=== PATIENT | male | born 1945 | race Caucasian/White ===

== ENCOUNTER → 2019-02-24 | Outpatient (CLI) | payer MEDICARE ==
[2019-02-24 19:08] LABS: African American GFR (CKD) 85.6 (60.0-200.0); Albumin 4.3 g/dL (3.80-4.90); Albumin/Globulin Ratio 2.05 (1.60-3.17); Anion Gap 9.3 mmol/L (4.00-12.00); Calcium 9.4 mg/dL (8.7-10.3); Carbon Dioxide 25.7 mmol/L (21.6-31.8); Chol/HDL Ratio 3.17; Globulin 2.1 g/dL (1.6-3.3); LDL Cholesterol,Calculated 54.6 mg/dL (0.0-131.0); Non-African American GFR(CKD) 73.8 (60.0-200.0); Potassium 5.1 mmol/L (3.5-5.5); Total Bilirubin 0.7 mg/dL (0.3-1.2); Total Protein 6.4 g/dL (6.2-8.2); VLDL Calculation 23.4 mg/dL (5.00-40.00)
== END | disposition home or self-care (01) ==
LOC: LABWHC1 08:31
PROVIDERS: ATTEND Nurse Practitioner Adult Health
DX: I10 Essential (primary) hypertension (principal); I25.10 Atherosclerotic heart disease of native coronary artery without angina pectoris; E78.2 Mixed hyperlipidemia
CPT/HCPCS: 36415; 80053; 80061

== ENCOUNTER → 2019-08-10 | Outpatient (CLI) | payer MEDICARE ==
[2019-08-10 17:56] LABS: African American GFR (CKD) 96.5 (60.0-200.0); Anion Gap 7.9 mmol/L (4.00-12.00); BUN/Creat Ratio 21.11 Ratio (12.00-20.00); Calcium 9.3 mg/dL (8.7-10.3); Carbon Dioxide 25.1 mmol/L (21.6-31.8); Chol/HDL Ratio 3.17; LDL Cholesterol,Calculated 55.8 mg/dL (0.0-131.0); Non-African American GFR(CKD) 83.3 (60.0-200.0); Potassium 4.8 mmol/L (3.5-5.5); VLDL Calculation 22.2 mg/dL (5.00-40.00)
== END | disposition home or self-care (01) ==
LOC: LABWHC1 10:14
PROVIDERS: ATTEND Nurse Practitioner Adult Health
DX: I10 Essential (primary) hypertension (principal)
CPT/HCPCS: 36415; 80048; 80061; 84450; 84460

== ENCOUNTER → 2020-02-10 | Outpatient (CLI) | payer MEDICARE ==
[2020-02-10 10:21] LABS: Basophils % (A) 1 %; Eosinophils # (A) 0.3 k/uL (0-0.7); Eosinophils % (A) 4 %; HCT 44.2 % (39.0-53.0); Lymphocytes % (A) 28 %; MCH 28.5 pg (25.0-35.0); MCHC 31.7 g/dL (31.0-37.0); MCV 89.6 fL (80.0-100.0); Mean Platelet Volume 7.5; Monocytes # (A) 0.5 k/uL (0-1.0); Monocytes % (A) 7 %; Neutrophils # (A) 4.2 k/uL (1.3-7.7); Neutrophils % (A) 58 %; Platelet Count 203 k/uL (150-450); RBC 4.93 m/uL (4.30-5.90); RDW 13.9 % (11.5-15.5); WBC 7.3 k/uL (3.8-10.6)
[2020-02-10 20:47] LABS: African American GFR (CKD) 96.5 (60.0-200.0); Albumin 4.4 g/dL (3.80-4.90); Albumin/Globulin Ratio 1.91 (1.60-3.17); Calcium 9.2 mg/dL (8.7-10.3); Chol/HDL Ratio 3.23; Globulin 2.3 g/dL (1.6-3.3); LDL Cholesterol,Calculated 50.6 mg/dL (0.0-131.0); Non-African American GFR(CKD) 83.3 (60.0-200.0); Potassium 4.8 mmol/L (3.5-5.5); Total Bilirubin 0.8 mg/dL (0.2-1.2); Total Protein 6.7 g/dL (6.2-8.2); VLDL Calculation 27.4 mg/dL (5.00-40.00)
== END | disposition home or self-care (01) ==
LOC: LABWHC1 08:45
PROVIDERS: ATTEND Internal Medicine Interventional Cardiology
DX: E78.5 Hyperlipidemia, unspecified (principal)
CPT/HCPCS: 36415; 80053; 80061; 82550; 85025

== ENCOUNTER → 2020-07-12 | Outpatient (CLI) | payer MEDICARE ==
[2020-07-12 17:03] LABS: African American GFR (CKD) >90 (>60 ml/min/1.73 sqM); Anion Gap 5 mmol/L; Blood Urea Nitrogen 17 mg/dL (9-20); Carbon Dioxide 28 mmol/L (22-30); Chloride 108 mmol/L (98-107); Non-African American GFR(CKD) 88 (>60 ml/min/1.73 sqM); Potassium 4.4 mmol/L (3.5-5.1); Sodium 141 mmol/L (137-145)
[2020-07-12 17:16] LABS: HCT 43.7 % (39.0-53.0); HGB 13.9 gm/dL (13.0-17.5); MCH 28.4 pg (25.0-35.0); MCHC 31.8 g/dL (31.0-37.0); MCV 89.2 fL (80.0-100.0); Mean Platelet Volume 7.3; Platelet Count 216 k/uL (150-450); RDW 13.5 % (11.5-15.5); WBC 7.4 k/uL (3.8-10.6)
== END | disposition home or self-care (01) ==
LOC: LABPAT 16:10
PROVIDERS: ATTEND Internal Medicine Clinical Cardiac Electrophysiology
DX: Z01.818 Encounter for other preprocedural examination (principal); I48.21 Permanent atrial fibrillation
CPT/HCPCS: 80051; 82565; 84520; 85027

== ENCOUNTER 2020-07-19 10:30 | Day surgery (SDC) | payer MEDICARE ==
[2020-07-15 15:45] VITALS: BMI 30.2
[~2020-07-19 10:30] MED LIST: LACTATED RINGERS 1,000 ML IV SCH; SODIUM CHLORIDE 0.9% 1,000 ML IV SCH
[2020-07-19 11:10] VITALS: TEMP 97.6
[2020-07-19 11:10] LABS: Glucose,Whole Blood 114 mg/dL (75-99)
[2020-07-19] MEDS ORDERED: ceFAZolin 1,000 MG in SODIUM CHLORIDE 0.9% IRRIGATIO 250 ML IRRIGATION ONE (11:30)
[2020-07-19] MEDS ORDERED: PROPOFOL 10 MG/ML 20 ML VIAL IV ONE (12:45)
[2020-07-19] MEDS ORDERED: fentaNYL (PF) 50 MCG/ML 2 ML AMP ONE (12:45)
[2020-07-19] MEDS ORDERED: diphenhydrAMINE 50 MG/ML 1 ML VIAL ONE (12:45)
[2020-07-19] MEDS ORDERED: MIDAZOLAM 2 MG/2 ML VIAL ONE (12:45)
[2020-07-19] MEDS ORDERED: IOPAMIDOL-250 50ML BTL IV ONE (13:00)
[2020-07-19] MEDS ORDERED: LIDOCAINE 1% INJ 10MG/ML (20 ML MDV) ONE (13:11)
[2020-07-19] MEDS ORDERED: LIDOCAINE 1% INJ 10MG/ML (20 ML MDV) SQ ONE ×2 (13:30→13:45)
--- NOTE | 2020-07-19 14:39 | P.PCN ---
Preoperative Diagnosis: Left upper extremity venogram 15 mL IV dye injected in left arm. The left axillary and subclavian and innominate veins of well opacified Veins were patent with Plan Proceed with permanent pacemaker implantation, with physiologic septal pacing to avoid RV pacing Condition: stable
--- NOTE | 2020-07-19 14:42 | P.PRLE ---
RE: Castillo Roach Dear Joshua Chong underwent permanent pacemaker implantation for atrial fibrillation with bradycardia. I implanted a HIS bundle pacemaker successfully to avoid RV pacing Patients with AV node disease or severe bradycardia, in whom the anticipated right ventricular pacing percentage will be high with standard dual-chamber pacing are at a disadvantage since RV pacing over years promotes LV systolic dysfunction and heart failure as well as increased episodes of atrial fibrillation. Biventricular pacing either using an LV lead in the coronary epicardial veins or His bundle pacing promotes a synchronized LV contraction and preserves LV systolic function with reduction in heart failure. One advantage of His bundle pacing is that it promotes conduction down both the normal bundles, simulating intrinsic conduction and preserving LV systolic function This is especially so in patients who already have LV dysfunction He will continue to see you and Dr. Naik as before My thank you
[2020-07-19] MEDS ORDERED: ACETAMINOPHEN TAB 325 MG TAB PO PRN (14:44)
[2020-07-19 15:19] VITALS: RESP 16
[2020-07-19 15:24] VITALS: BP 120/71; PULSE 68
--- NOTE | 2020-07-19 15:40 | CE ---
CARDIAC ELECTROPHYSIOLOGY REPORT Mr. Roach is a 75-year-old male patient of Dr. Naik and Dr. Lira who has atrial fibrillation, tachy-dionna syndrome and underlying bradycardia, symptomatic. He was referred for a permanent pacemaker implantation. In view of his atrial fibrillation with significant bradycardia, a standard single-chamber pacemaker would result in the high RV pacing percentage. Therefore, a biventricular pacemaker was recommended with physiologic septal pacing. The patient was brought to the EP lab in a fasting state. Written informed consent was obtained prior to the procedure. The left shoulder area was prepped and draped as per protocol and 1% lidocaine was used for local anesthesia. A 4 cm incision was made parallel to the deltopectoral groove, about 1.5 cm medial to it. The incision was carried down to the level of the pectoralis muscle. A subfascial pocket was made hemostasis was assured. The axillary vein was accessed at 2 separate points under fluoroscopy and via appropriately-sized introducer sheaths 2 leads were positioned. The RV lead was screwed in the RV apex. This was a Medtronic model number 5076, 58 cm in length and serial number [id number]. Pacing threshold 0.5 V at 0.5 milliseconds, pacing impedance of 1000 ohms. R-waves 9 mV. Ten volt test was negative. The Medtronic model #3830, 69 cm length and serial number [id number] was implanted in the His bundle area. His bundle signal was noted and a nonselective capture was noted. Loss of nonselective capture was noted at 1.25 V at 1 milliseconds, pacing impedance of 437 ohms. Sensing 5 mV. The sheaths were removed. Both leads were secured to the underlying pectoralis muscle and a biventricular pacemaker was implanted. This was a Medtronic Izabela FELLER MACHINE OPERATOR P, model number W1TR02, serial number [id number]. The lead and generator were then placed in subfascial pocket. The wound was closed in 3 layers and dressed per protocol. The generator was secured to the underlying pectoralis muscle. The wound was closed in 3 layers and dressed per protocol. RESULT: Successful biventricular pacemaker with physiologic septal pacing. To promote preferential His bundle pacing and avoid RV pacing. The patient tolerated the procedure well without any acute complications. MMODL / IJN: [id number] /
--- NOTE | 2020-07-19 16:09 | XR ---
EXAMINATION TYPE: XR chest 1V portable DATE OF EXAM: 07/19/2020 HISTORY: Shortness of breath. COMPARISON: None TECHNIQUE: Single view of the chest is submitted. FINDINGS: Demonstrated are scattered senescent parenchymal change. Pacer device noted with distal leads within the right atrium and right ventricles respectively. No evidence for pneumothorax. There is no evidence for focal infiltrate. The heart is stable. Hilar and mediastinal structures are within normal limits. Degenerative changes are seen of the dorsal spine. IMPRESSION: 1. Chronic changes without evidence for acute pulmonary disease.
[2020-07-19] MEDS ORDERED: ACETAMINOPHEN IV (For NPO) 1,000 MG in EMPTY BAG 1 BAG IVPB ONE (17:00)
== END 2020-07-19 18:45 | disposition home or self-care (01) ==
LOC: CATHEP 10:30
PROVIDERS: ATTEND Internal Medicine Clinical Cardiac Electrophysiology
DX: I49.5 Sick sinus syndrome (principal); I48.11 Longstanding persistent atrial fibrillation; I25.10 Atherosclerotic heart disease of native coronary artery without angina pectoris; I10 Essential (primary) hypertension; I73.9 Peripheral vascular disease, unspecified; J45.909 Unspecified asthma, uncomplicated; E11.9 Type 2 diabetes mellitus without complications; E78.2 Mixed hyperlipidemia; M19.90 Unspecified osteoarthritis, unspecified site; K21.9 Gastro-esophageal reflux disease without esophagitis; Z95.1 Presence of aortocoronary bypass graft; Z98.890 Other specified postprocedural states; Z79.01 Long term (current) use of anticoagulants; Z79.84 Long term (current) use of oral hypoglycemic drugs; Z79.899 Other long term (current) drug therapy; Z87.891 Personal history of nicotine dependence; Z90.89 Acquired absence of other organs; Z82.49 Family history of ischemic heart disease and other diseases of the circulatory system
CPT/HCPCS: 33207; 71045; C1769 ×4; C1892; C1887; C1898; C2621; J2250; J1200; J0690 ×2; J2001; J3010; J0131; J2704; Q9966

== ENCOUNTER → 2020-10-19 | Outpatient (CLI) | payer MEDICARE ==
--- NOTE | 2020-10-19 15:34 | US ---
EXAMINATION TYPE: US abdomen complete DATE OF EXAM: 10/19/2020 COMPARISON: NONE CLINICAL HISTORY: K42.9 Umbilical hernia without obstruction. EXAM MEASUREMENTS: Liver Length: 13.2 cm Gallbladder Wall: 0.3 cm CBD: 0.5 cm Spleen: 12.1 cm Right Kidney: 11.1 x 5.5 x 5.1 cm Left Kidney: 11.6 x 6.0 x 5.1 cm Pancreas: not well visualized due to midline bowel gas Liver: wnl Gallbladder: No stones seen Evidence for sonographic George's sign: No CBD: wnl Spleen: wnl Right Kidney: No hydronephrosis or masses seen Left Kidney: No hydronephrosis or masses seen Upper IVC: wnl Abd Aorta: visualized portions wnl, partially obscured by bowel gas. Scanning was performed around umbilicus with and without valsalva. No obvious hernia noted by ultra sound. IMPRESSION: 1. No obvious hernia in periumbilical region. 2. Normal abdomen ultrasound
== END | disposition home or self-care (01) ==
LOC: RADUSWWP 14:49
PROVIDERS: ATTEND Family Medicine
DX: K42.9 Umbilical hernia without obstruction or gangrene (principal)
CPT/HCPCS: 76700

== ENCOUNTER → 2021-02-01 | Outpatient (CLI) | payer MEDICARE ==
[2021-02-01 14:43] LABS: African American GFR (CKD) 95.8 (60.0-200.0); Albumin 4.4 g/dL (3.80-4.90); Albumin/Globulin Ratio 1.91 (1.60-3.17); Anion Gap 9.4 mmol/L (4.00-12.00); BUN/Creat Ratio 22.22 Ratio (12.00-20.00); Calcium 8.9 mg/dL (8.7-10.3); Carbon Dioxide 23.6 mmol/L (21.6-31.8); Chol/HDL Ratio 2.97; Globulin 2.3 g/dL (1.6-3.3); LDL Cholesterol,Calculated 55.2 mg/dL (0.0-131.0); Non-African American GFR(CKD) 82.7 (60.0-200.0); Potassium 4.2 mmol/L (3.5-5.5); Total Protein 6.7 g/dL (6.2-8.2); VLDL Calculation 15.8 mg/dL (5.00-40.00)
== END | disposition home or self-care (01) ==
LOC: LABWHC1 07:54
PROVIDERS: ATTEND Nurse Practitioner Adult Health
DX: I10 Essential (primary) hypertension (principal); E78.2 Mixed hyperlipidemia
CPT/HCPCS: 36415; 80053; 80061

== ENCOUNTER → 2021-08-02 | Outpatient (CLI) | payer MEDICARE ==
[2021-08-02 20:49] LABS: ALT 13 U/L (10-49); AST 15 U/L (14-35); African American GFR (CKD) 83.8 (60.0-200.0); Albumin 4.6 g/dL (3.8-4.9); Albumin/Globulin Ratio 1.92 (1.60-3.17); Alkaline Phosphatase 67 U/L (41-126); Blood Urea Nitrogen 15.4 mg/dL (9.0-27.0); Calcium 9.3 mg/dL (8.7-10.3); Carbon Dioxide 21.4 mmol/L (20.0-27.5); Chloride 106 mmol/L (96-109); Chol/HDL Ratio 2.37 Ratio; Globulin 2.4 g/dL (1.6-3.3); Glucose 116 mg/dL (70-110); LDL Cholesterol,Calculated 39.1 mg/dL (0.0-131.0); Non-African American GFR(CKD) 72.3 (60.0-200.0); Potassium 4.6 mmol/L (3.5-5.5); Sodium 140 mmol/L (135-145); VLDL Calculation 16.02 mg/dL (5.00-40.00)
== END | disposition home or self-care (01) ==
LOC: LABWHC1 11:05
PROVIDERS: ATTEND Nurse Practitioner Adult Health
DX: I10 Essential (primary) hypertension (principal); E78.2 Mixed hyperlipidemia
CPT/HCPCS: 36415; 80053; 80061

== ENCOUNTER → 2022-03-03 | Outpatient (CLI) | payer MEDICARE ==
[2022-03-03 17:15] LABS: ALT 16 U/L (10-49); AST 20 U/L (14-35); African American GFR (CKD) 88.5 (60.0-200.0); Albumin 4.5 g/dL (3.8-4.9); Albumin/Globulin Ratio 1.54 (1.60-3.17); Alkaline Phosphatase 63 U/L (41-126); BUN/Creat Ratio 20.82 Ratio (12.00-20.00); Blood Urea Nitrogen 19.9 mg/dL (9.0-27.0); Calcium 9.5 mg/dL (8.7-10.3); Carbon Dioxide 24.6 mmol/L (20.0-27.5); Chloride 104 mmol/L (96-109); Globulin 2.9 g/dL (1.6-3.3); Glucose 127 mg/dL (70-110); LDL Cholesterol,Calculated 45.7 mg/dL (0.0-131.0); Non-African American GFR(CKD) 76.3 (60.0-200.0); Potassium 4.8 mmol/L (3.5-5.5); Sodium 140 mmol/L (135-145); Total Protein 7.4 g/dL (6.2-8.2); VLDL Calculation 12.74 mg/dL (5.00-40.00)
== END | disposition home or self-care (01) ==
LOC: LABWHC1 08:43
PROVIDERS: ATTEND Internal Medicine Interventional Cardiology
DX: E78.2 Mixed hyperlipidemia (principal)
CPT/HCPCS: 36415; 80053; 80061